=== PATIENT | male | born 1985 | race Caucasian/White ===

== ENCOUNTER 2021-03-11 22:20 | Emergency (ER) | payer BC ==
[2021-03-11 22:26] VITALS: BP 126/81; PULSE 98; RESP 19; TEMP 98.2
[2021-03-11 23:20] LABS: Appearance,Urine Clear (Clear); Bilirubin,Urine Negative (Negative); Blood,Urine Negative (Negative); Color,Urine Light Yellow; Glucose,Urine (UA) Negative (Negative); Ketones,Urine Negative (Negative); Leukocyte Esterase,Urine Negative (Negative); Nitrite,Urine Negative (Negative); Protein,Urine Negative (Negative); Specific Gravity,Urine 1.004 (1.001-1.035); Urobilinogen,Urine <2.0 mg/dL (<2.0)
--- NOTE | 2021-03-11 23:38 | ED ---
General Adult HPI - General Source: patient, RN notes reviewed Mode of arrival: ambulatory <Migeul A Gardner - Last Filed: 03/11/21 23:56> <Luis Ritter - Last Filed: 03/12/21 05:04> - General Chief complaint: Psychiatric Symptoms Stated complaint: Mental Health Time Seen by Provider: 03/11/21 23:23 - History of Present Illness Initial comments: 35-year-old male presents to the emergency room for a chief complaint of homicidal thoughts. Patient states he has had these thoughts for a long time. He states he has dreams of killing people randomly. He states that he wonders if killing would make him feel better but states that he does not want to. He states that he would never act on this but does not like having these thoughts so called crisis line for help. He does not have any thoughts of harming himself or anyone else.Patient has no other complaints at this time including shortness of breath, chest pain, abdominal pain, nausea or vomiting, headache, or visual changes. (Miguel A Gardner) - Related Data Allergies Allergy/AdvReac Type Severity Reaction Status Date / Time azithromycin AdvReac Rash/Hives Verified 03/11/21 22:26 Sulfa (Sulfonamide AdvReac Rash/Hives Verified 03/11/21 22:26 Antibiotics) sulfamethoxazole AdvReac Rash/Hives Verified 03/11/21 22:26 [From Bactrim] trimethoprim [From Bactrim] AdvReac Rash/Hives Verified 03/11/21 22:26 Review of Systems ROS Other: All systems not noted in ROS Statement are negative. <Miguel A Gardner - Last Filed: 03/11/21 23:56> ROS Other: All systems not noted in ROS Statement are negative. <Luis Ritter - Last Filed: 03/12/21 05:04> ROS Statement: Those systems with pertinent positive or pertinent negative responses have been documented in the HPI. Past Medical History Past Medical History: No Reported History History of Any Multi-Drug Resistant Organisms: None Reported Past Surgical History: No Surgical Hx Reported Past Psychological History: No Psychological Hx Reported Smoking Status: Current every day smoker Past Alcohol Use History: Daily Past Drug Use History: None Reported <Miguel A Gardner - Last Filed: 03/11/21 23:56> General Exam General appearance: alert, in no apparent distress Head exam: Present: atraumatic Eye exam: Present: normal appearance, PERRL, EOMI. Absent: scleral icterus ENT exam: Present: normal exam, mucous membranes moist Neck exam: Present: normal inspection, full ROM. Absent: tenderness Respiratory exam: Present: normal lung sounds bilaterally. Absent: respiratory distress, wheezes Cardiovascular Exam: Present: regular rate, normal rhythm, normal heart sounds GI/Abdominal exam: Present: soft, normal bowel sounds. Absent: distended, tenderness Neurological exam: Present: alert <Miguel A Gardner P - Last Filed: 03/11/21 23:56> General appearance: alert, in no apparent distress Head exam: Present: atraumatic, normocephalic, normal inspection Eye exam: Present: normal appearance, PERRL, EOMI. Absent: scleral icterus, conjunctival injection, periorbital swelling ENT exam: Present: normal exam, mucous membranes moist Neck exam: Present: normal inspection. Absent: tenderness, meningismus, lymp hadenopathy Respiratory exam: Present: normal lung sounds bilaterally. Absent: respiratory distress, wheezes, rales, rhonchi, stridor Cardiovascular Exam: Present: regular rate, normal rhythm, normal heart sounds. Absent: systolic murmur, diastolic murmur, rubs, gallop, clicks GI/Abdominal exam: Present: soft, normal bowel sounds. Absent: distended, tenderness, guarding, rebound, rigid Extremities exam: Present: normal inspection, full ROM, normal capillary refill. Absent: tenderness, pedal edema, joint swelling, calf tenderness Back exam: Present: normal inspection Neurological exam: Present: alert, oriented X3, CN II-XII intact Psychiatric exam: Present: normal affect, normal mood Skin exam: Present: warm, dry, intact, normal color. Absent: rash <Luis Ritter - Last Filed: 03/12/21 05:04> Course <Luis Ritter - Last Filed: 03/12/21 05:04> Vital Signs 03/11/21 22:23 Temperature 98.2 F Pulse Rate 98 Respiratory 19 Rate Blood Pressure 126/81 O2 Sat by Pulse 98 Oximetry - Reevaluation(s) Reevaluation #1: 03/12/21 05:03 Medical record is reviewed 03/12/21 05:03 Medical clear for psychiatric evaluation (Luis Ritter) Reevaluation #2: 03/12/21 05:03 Patient is awake alert and amateur (Luis Ritter) Medical Decision Making <Miguel A Gardner - Last Filed: 03/11/21 23:56> <Luis Ritter - Last Filed: 03/12/21 05:04> - Medical Decision Making care signed out to Dr Ritter at 0030 (Miguel A Gardner) 35 male seen and evaluated by psychiatry here in the emergency room. Patient consents to safety not homicidal or suicidal, was intoxicated earlier sober now can be discharged home (Luis Ritter) - Lab Data Lab Results 03/11/21 Range/Units 22:45 Urine Color Light Yellow Urine Appearance Clear (Clear) Urine pH 5.0 (5.0-8.0) Ur Specific [place] 1.004 (1.001-1.035) Urine Protein Negative (Negative) Urine Glucose (UA) Negative (Negative) Urine Ketones Negative (Negative) Urine Blood Negative (Negative) Urine Nitrite Negative (Negative) Urine Bilirubin Negative (Negative) Urine Urobilinogen <2.0 (<2.0) mg/dL Ur Leukocyte Esterase Negative (Negative) Urine Opiates Screen Not Detected (NotDetected) Ur Oxycodone Screen Not Detected (NotDetected) Urine Methadone Screen Not Detected (NotDetected) Ur Propoxyphene Screen Not Detected (NotDetected) Ur Barbiturates Screen Not Detected (NotDetected) U Tricyclic Antidepress Not Detected (NotDetected) Ur Phencyclidine Scrn Not Detected (NotDetected) Ur Amphetamines Screen Not Detected (NotDetected) U Methamphetamines Scrn Not Detected (NotDetected) U Benzodiazepines Scrn Not Detected (NotDetected) Urine Cocaine Screen Not Detected (NotDetected) U Marijuana (THC) Screen Not Detected (NotDetected) Disposition <Miguel A Gardner - Last Filed: 03/11/21 23:56> Is patient prescribed a controlled substance at d/c from ED?: No <Luis Ritter - Last Filed: 03/12/21 05:04> Clinical Impression: Depression, Alcohol intoxication Disposition: HOME SELF-CARE Condition: Good Instructions (If sedation given, give patient instructions): Alcohol Intoxication (ED) Referrals: None,Stated [Primary Care Provider] - 1-2 days
[2021-03-11 23:54] LABS: Amphetamine Screen,Urine Not Detected (NotDetected); Barbiturate Screen,Urine Not Detected (NotDetected); Benzodiazepines Screen,Urine Not Detected (NotDetected); Cocaine Screen,Urine Not Detected (NotDetected); Methadone Screen, Urine Not Detected (NotDetected); Opiate Screen,Urine Not Detected (NotDetected); Oxycodone Screen, Urine Not Detected (NotDetected); Phencyclidine Screen,Urine Not Detected (NotDetected); Tricyclic Antidepressant,Urine Not Detected (NotDetected); Urn Cannabinoid Scrn Not Detected (NotDetected)
== END 2021-03-12 05:43 | disposition home or self-care (01) ==
LOC: EC 22:20
DX: F10.129 Alcohol abuse with intoxication, unspecified (principal); F32.9 Major depressive disorder, single episode, unspecified; F17.200 Nicotine dependence, unspecified, uncomplicated
CPT/HCPCS: 80306; 81003; 82075; 99285

== ENCOUNTER 2021-08-21 13:18 | Emergency (ER) | payer BC ==
--- NOTE | 2021-08-21 13:27 | ED ---
General Adult HPI - General Stated complaint: ETOH/Mental Health Time Seen by Provider: 08/21/21 13:19 Source: patient, RN notes reviewed Limitations: no limitations - History of Present Illness Initial comments: Patient is a pleasant 35-year-old male presenting to the emergency Department with concerns that he needs to talk with someone. Patient admits to drinking daily. Patient states this helps to control his anxiety. Patient denies actual homicidal thoughts. Patient also denies suicidal thoughts. No new physical complaints. No hallucinations. No drug use. Patient does smoke. - Related Data Home Medications Medication Instructions Recorded Confirmed No Known Home Medications 08/21/21 08/21/21 Allergies Allergy/AdvReac Type Severity Reaction Status Date / Time azithromycin AdvReac Rash/Hives Verified 08/21/21 14:16 Sulfa (Sulfonamide AdvReac Rash/Hives Verified 08/21/21 14:16 Antibiotics) sulfamethoxazole AdvReac Rash/Hives Verified 08/21/21 14:16 [From Bactrim] trimethoprim [From Bactrim] AdvReac Rash/Hives Verified 08/21/21 14:16 Review of Systems ROS Statement: Those systems with pertinent positive or pertinent negative responses have been documented in the HPI. ROS Other: All systems not noted in ROS Statement are negative. Constitutional: Denies: fever Eyes: Denies: eye pain ENT: Denies: ear pain Respiratory: Denies: cough Cardiovascular: Denies: chest pain Endocrine: Denies: fatigue Gastrointestinal: Denies: abdominal pain Genitourinary: Denies: dysuria Skin: Denies: rash Neurological: Denies: headache Psychiatric: Reports: anxiety Past Medical History Past Medical History: No Reported History History of Any Multi-Drug Resistant Organisms: None Reported Past Surgical History: No Surgical Hx Reported Past Psychological History: No Psychological Hx Reported Smoking Status: Current every day smoker Past Alcohol Use History: Daily Past Drug Use History: None Reported General Exam Limitations: no limitations General appearance: alert, in no apparent distress, appears intoxicated Head exam: Present: normocephalic Eye exam: Present: normal appearance Neck exam: Present: normal inspection Respiratory exam: Present: normal lung sounds bilaterally Cardiovascular Exam: Present: regular rate, normal rhythm Extremities exam: Present: normal inspection Neurological exam: Present: alert Psychiatric exam: Present: normal mood Skin exam: Present: normal color Course Vital Signs 08/21/21 13:24 Temperature 98.7 F Pulse Rate 92 Respiratory 16 Rate Blood Pressure 139/97 O2 Sat by Pulse 96 Oximetry Medical Decision Making - Medical Decision Making Patient no longer wants to stay. Patient is a and O 3. Steady gait. Patient denies suicidal or homicidal thoughts. Patient will leave AGAINST MEDICAL ADVICE. Patient did not wait for discharge instructions. - Lab Data Lab Results 08/21/21 Range/Units 13:35 Urine Opiates Screen Not Detected (NotDetected) Ur Oxycodone Screen Not Detected (NotDetected) Urine Methadone Screen Not Detected (NotDetected) Ur Propoxyphene Screen Not Detected (NotDetected) Ur Barbiturates Screen Not Detected (NotDetected) U Tricyclic Antidepress Not Detected (NotDetected) Ur Phencyclidine Scrn Not Detected (NotDetected) Ur Amphetamines Screen Not Detected (NotDetected) U Methamphetamines Scrn Not Detected (NotDetected) U Benzodiazepines Scrn Not Detected (NotDetected) Urine Cocaine Screen Not Detected (NotDetected) U Marijuana (THC) Screen Not Detected (NotDetected) Disposition Clinical Impression: Alcoholic intoxication Disposition: Left Against Medical Advice Is patient prescribed a controlled substance at d/c from ED?: No Referrals: None,Stated [Primary Care Provider] - 1-2 days Time of Disposition: 15:14
[2021-08-21 13:32] VITALS: BP 139/97; PULSE 92; RESP 16; TEMP 98.7
[2021-08-21 14:19] LABS: Amphetamine Screen,Urine Not Detected (NotDetected); Barbiturate Screen,Urine Not Detected (NotDetected); Benzodiazepines Screen,Urine Not Detected (NotDetected); Cocaine Screen,Urine Not Detected (NotDetected); Methadone Screen, Urine Not Detected (NotDetected); Opiate Screen,Urine Not Detected (NotDetected); Oxycodone Screen, Urine Not Detected (NotDetected); Phencyclidine Screen,Urine Not Detected (NotDetected); Tricyclic Antidepressant,Urine Not Detected (NotDetected); Urn Cannabinoid Scrn Not Detected (NotDetected)
== END 2021-08-21 15:30 | disposition left against medical advice (07) ==
LOC: EC 13:18
DX: F10.129 Alcohol abuse with intoxication, unspecified (principal); F17.200 Nicotine dependence, unspecified, uncomplicated; Z88.2 Allergy status to sulfonamides; Z88.1 Allergy status to other antibiotic agents; Y90.9 Presence of alcohol in blood, level not specified
CPT/HCPCS: 80306; 82075; 99284